=== PATIENT | male | born 1960 | race Caucasian/White ===

== ENCOUNTER 2019-03-07 00:17 | Inpatient (IN) ==
[2019-03-07 01:28] LABS: Appearance Urine Cloudy (Clear); Bacteria Urine Automated Negative (Negative); Bilirubin Urine Negative (Negative); Blood Urine Negative (Negative); Cast Urine Automated 0 /lpf (0-5); Color Urine Yellow; Glucose Urine UA Negative (Negative); Ketones Urine Trace (Negative); Leukocyte Esterase Urine Negative (Negative); Nitrite Urine Negative (Negative); Protein Urine Negative (Negative); RBC Urine Automated 0-4 /hpf (0-4); Specific Gravity Urine 1.025 (1.000-1.030); Urobilinogen Urine Negative (Negative)
[2019-03-07 01:36] LABS: Basophils # (auto) 0.08 K/uL (0-0.2); Eosinophils # (auto) 0.11 K/uL (0-0.5); Eosinophils % (auto) 1.3 %; Hematocrit (blood only) 45.5 % (42-52); Hemoglobin 15.6 g/dL (14.0-18.0); Immature Granulocytes # (auto) 0.01 K/uL (0.00-0.02); Immature Granulocytes % (auto) 0.1 %; Lymphocytes # (auto) 1.56 K/uL (1.2-3.4); Mean Corpuscular Hgb Conc 34.3 g/dL (32-36); Mean Corpuscular Volume 86.2 fL (80-100); Mean Platelet Volume 9.7 fL (7.4-10.4); Monocytes # (auto) 0.92 K/uL (0.11-0.59); Monocytes % (auto) 11.2 %; Neutrophils # (auto) 5.52 K/uL (1.4-6.5); Neutrophils % (auto) 67.4 %; Platelet Count 195 K/uL (130-400); RDW Coefficient of Variation 13.7 % (11.5-14.5); RDW Standard Deviation 42.7 fL (36.4-46.3); Red Blood Count 5.28 M/uL (4.7-6.1)
[2019-03-07 01:48] LABS: Amphetamines+Metham, Urine Neg (Neg); Barbiturates, Urine Neg (Neg); Benzodiazepine, Urine Neg (Neg); Cocaine, Urine Neg (Neg); MDMA (Ecstacy), Urine Neg (Neg); Methadone, Urine Neg (Neg); Opiate, Urine Neg (Neg); Phencyclidine, Urine Neg (Neg)
[2019-03-07 01:53] LABS: Albumin Level 3.8 gm/dl (3.4-5.0); BUN Creatinine Ratio 27.6 (10-20); Creatinine Clr Calc Pharmacy 74.9 ml/min; Est GFR (African American) 91.3; Est GFR (Non-African American) 78.8; Potassium 3.9 mmol/L (3.5-5.1)
[2019-03-07 02:03] LABS: Acetaminophen < 2 ug/ml (10-30); Albumin Globulin Ratio 1.2 (0.9-2); Bilirubin,Total 0.3 mg/dl (0.2-1); Globulin 3.3 gm/dl (2.5-4.0); Salicylate < 1.7 mg/dl (2.8-20); Total Protein 7.1 gm/dl (6.4-8.2)
--- NOTE | 2019-03-07 06:26 | Emergency Department Note ---
Entered by Ghanshyam Larson acting as a scribe for Trip Joseph MD ED Provider Note Name: Derek Peoples Age: 58 Arrives Via: Police/EMS Informant: Patient CC: Depression/Mental Health Evaluation HPI: The patient is a 58 year old male who presents to the Emergency Room via Police/EMS for a mental health evaluation. The patient states "Apparently I wrote too much in a text message to my Fiance." His Fiance called to have the patient brought into the ED this morning after he made concerning statements in a text message. The patient admits that he has been experiencing worsening depression, secondary to the progression of his Parkinson's Disease. He was diagnosed with Parkinson's in 2009. He notes that in addition to the Parkinson's his Fiance is "trying to separate from me" and he is feeling more and more depressed. The patient denies any suicidal ideation, and denies ever trying to hurt himself in the past. When asked if he ever would hurt himself he replies "Its not worth it." He does later admit to "vague thoughts." The patient denies any physical complaints including chest pain, shortness of breath, abdominal pain, or changes to bowel/bladder habits. ROS: See above HPI for pertinent positives & negatives. A total of 10 systems reviewed and were otherwise negative. Past Medical History: Parkinson's Disease Past Surgical History: N/A Family History: Non-contributory Social History: Lives with Katarina, employed. Home Medications: Parkinson's medications. Allergies No known allergies. Physical: Vitals: BP 136/85, Pulse 80, Resp 18, Temp 98.4 F, O2 sat 97 Exam: GENERAL: Patient is mildly anxious appearing and in no acute distress. He is cooperative. EYES: No scleral icterus, unremarkable pupils. ENT: Mucous membranes moist, no nasal congestion. NECK: No masses appreciated, no meningismus, trachea is midline. RESPIRATORY: No dyspnea. Clear to auscultation and equal bilaterally. No wheeze, no rhonchi. CARDIOVASCULAR: Regular rate and rhythm. No murmurs, rubs, gallops appreciated. GASTROINTESTINAL: Abdomen soft, non-tender, no peritonitis. Bowel sounds positive. No masses appreciated. BACK: No midline tenderness, no CVA tenderness EXTREMITIES: Normal motion all extremities, no cyanosis, no edema. NEUROLOGIC: There is a constant termor noted. Alert and oriented, no acute motor or sensory deficits, no focal weakness, cranial nerves grossly intact. SKIN: No rash, no jaundice, no diaphoresis. PSYCH: Patient is mildly anxious appearing. Admits depression. Denies suicidal ideation nor plan. ED Course: Prior Medical Record, Triage/Nursing Notes, Medications, Allergies reviewed by Me Vital Signs: reviewed and remarkable for wnl Labs: Reviewed and remarkable for normal psych clearance labs Reassessments/Times: 0225: The patient is stable at this time. 0320: I had a prolonged discussion with the patient at this time. He admits that he did send text messages with multiple specific ways he would kill himself after he voluntarily showed them to the Platform Operations Director. He is now open to discussing and admits that one message said "I am not kidding." He states that he is not a danger to himself and states that he was just trying to get the girlfriend to come talk to him and that he would never kill himself. He is adamant that he does not need to be admitted. I discussed the option of 302 petition vs 201 petition. He told me that "I will have to do what I have to do." 629: The patient will be signed out to Dr. Camejo at change of shift. Awaiting placement in inpatient psychiatric facility. Blood pressure: Normal. No Referral necessary Disposition: Signed out to Dr Camejo pending placement Differentials: Etiologies such as psychiatric disorder, infection, hypoglycemia, electrolyte abnormalities, cardiac sources, intracerebral event, toxicological process, neurologic disorder, as well as others were entertained. Medical Decision Makin yr old male with Parkinson's who has been having worsening depression and has made multiple specific suicidal statements via text to significant other. He is not able to recognize the danger of his situation. He is too high risk to send home despite his requests that I just trust him. He is unwilling to sign 201. For his safety I feel that I have no option but to continue with 302 that is being petitioned by the Mental Health Platform Operations Director Shy. Patient is medically clear. Signed out to Dr Camejo pending placement. Impression: Depression Suicidal Risk Trip Joseph MD The scribe's documentation has been prepared under my direction and personally reviewed by me in its entirety. I confirm that the note above accurately reflects all work, treatment, procedures, and medical decision making performed by me. Impression & Plan Depression, Suicidal risk Past Med/Surg History Medical History Parkinsons disease Social History marital status: Engaged Current Living Situation: Significant Other current occupational status: employed Feels Safe at Home: Yes Smoking Status: Never smoker Results & Data Vital Signs Vital Signs - 24 hr 03/07/19 00:26 Temperature 36.9 C Temperature Source Oral Sepsis Recent Fever Within 48 Hours No Sepsis Action Taken by Nursing No Action Required Pulse Rate 80 Respiratory Rate 18 Respiratory Depth Normal Blood Pressure 136/85 Blood Pressure Mean 102 Pulse Oximetry 97 Oxygen Delivery Method Room Air Home Medications Current Medication List: was personally reviewed by me Laboratory Data Attestation: I reviewed the patient's lab results. Result diagrams: 03/07/19 01:22 03/07/19 01:22 Lab Results 03/07/19 03/07/19 03/07/19 Range/Units 00:40 00:40 01:22 WBC 8.20 (4.8-10.8) K/uL RBC 5.28 (4.7-6.1) M/uL Hgb 15.6 (14.0-18.0) g/dL Hct 45.5 (42-52) % MCV 86.2 (80-100) fL MCH 29.5 (25-34) pg MCHC 34.3 (32-36) g/dL RDW Std Deviation 42.7 (36.4-46.3) fL RDW Coeff of Kang 13.7 (11.5-14.5) % Plt Count 195 (130-400) K/uL MPV 9.7 (7.4-10.4) fL Immature Gran % (Auto) 0.1 % Neut % (Auto) 67.4 % Lymph % (Auto) 19.0 % [place] % (Auto) 11.2 % Eos % (Auto) 1.3 % Baso % (Auto) 1.0 % Immature Gran # (Auto) 0.01 (0.00-0.02) K/uL Neut # (Auto) 5.52 (1.4-6.5) K/uL Lymph # (Auto) 1.56 (1.2-3.4) K/uL [place] # (Auto) 0.92 H (0.11-0.59) K/uL Eos # (Auto) 0.11 (0-0.5) K/uL Baso # (Auto) 0.08 (0-0.2) K/uL Sodium (136-145) mmol/L Potassium (3.5-5.1) mmol/L Chloride (98-107) mmol/L Carbon Dioxide (21-32) mmol/L Anion Gap (3-11) BUN (7-18) mg/dl Creatinine (0.6-1.4) mg/dl Est Cr Clr Drug Dosing ml/min Est GFR ( Amer) Est GFR (Non-Af Amer) BUN/Creatinine Ratio (10-20) Glucose (70-99) mg/dl Calcium (8.5-10.1) mg/dl Total Bilirubin (0.2-1) mg/dl AST (15-37) U/L ALT (12-78) U/L Alkaline Phosphatase (45-117) U/L Total Protein (6.4-8.2) gm/dl Albumin (3.4-5.0) gm/dl Globulin (2.5-4.0) gm/dl Albumin/Globulin Ratio (0.9-2) TSH (0.300-4.500) uIu/ml Urine Color Yellow Urine Appearance Cloudy H (Clear) Urine pH 5.0 (4.5-7.5) Ur Specific Neely 1.025 (1.000-1.030) Urine Protein Negative (Negative) Urine Glucose (UA) Negative (Negative) Urine Ketones Trace H (Negative) Urine Blood Negative (Negative) Urine Nitrite Negative (Negative) Urine Bilirubin Negative (Negative) Urine Urobilinogen Negative (Negative) Ur Leukocyte Esterase Negative (Negative) Urine WBC (Auto) 1-5 (0-5) /hpf Urine RBC (Auto) 0-4 (0-4) /hpf U Hyaline Cast (Auto) 0 (0-5) /lpf U Epithel Cells (Auto) 5-10 H (0-5) /lpf Urine Bacteria (Auto) Negative (Negative) Salicylates (2.8-20) mg/dl Urine Opiates Screen Neg (Neg) Ur Methadone, Qual Neg (Neg) Acetaminophen (10-30) ug/ml Urine Barbiturates Neg (Neg) Ur Phencyclidine (PCP) Neg (Neg) U Amphetamin/Meth Scrn Neg (Neg) MDMA (Ecstasy) Screen Neg (Neg) U Benzodiazepines Scrn Neg (Neg) Ur Cocaine Metabolite Neg (Neg) U Marijuana (THC) Screen Neg (Neg) Ethyl Alcohol mg/dL (0-3) mg/dl 03/07/19 03/07/19 03/07/19 Range/Units 01:22 01:22 01:22 WBC (4.8-10.8) K/uL RBC (4.7-6.1) M/uL Hgb (14.0-18.0) g/dL Hct (42-52) % MCV (80-100) fL MCH (25-34) pg MCHC (32-36) g/dL RDW Std Deviation (36.4-46.3) fL RDW Coeff of Kang (11.5-14.5) % Plt Count (130-400) K/uL MPV (7.4-10.4) fL Immature Gran % (Auto) % Neut % (Auto) % Lymph % (Auto) % [place] % (Auto) % Eos % (Auto) % Baso % (Auto) % Immature Gran # (Auto) (0.00-0.02) K/uL Neut # (Auto) (1.4-6.5) K/uL Lymph # (Auto) (1.2-3.4) K/uL [place] # (Auto) (0.11-0.59) K/uL Eos # (Auto) (0-0.5) K/uL Baso # (Auto) (0-0.2) K/uL Sodium 140 (136-145) mmol/L Potassium 3.9 (3.5-5.1) mmol/L Chloride 105 (98-107) mmol/L Carbon Dioxide 34 H (21-32) mmol/L Anion Gap 1.0 L (3-11) BUN 29 H (7-18) mg/dl Creatinine 1.04 (0.6-1.4) mg/dl Est Cr Clr Drug Dosing 74.9 ml/min Est GFR ( Amer) 91.3 Est GFR (Non-Af Amer) 78.8 BUN/Creatinine Ratio 27.6 H (10-20) Glucose 100 H (70-99) mg/dl Calcium 9.0 (8.5-10.1) mg/dl Total Bilirubin 0.3 (0.2-1) mg/dl AST 16 (15-37) U/L ALT 10 L (12-78) U/L Alkaline Phosphatase 62 (45-117) U/L Total Protein 7.1 (6.4-8.2) gm/dl Albumin 3.8 (3.4-5.0) gm/dl Globulin 3.3 (2.5-4.0) gm/dl Albumin/Globulin Ratio 1.2 (0.9-2) TSH 0.608 (0.300-4.500) uIu/ml Urine Color Urine Appearance (Clear) Urine pH (4.5-7.5) Ur Specific [place] (1.000-1.030) Urine Protein (Negative) Urine Glucose (UA) (Negative) Urine Ketones (Negative) Urine Blood (Negative) Urine Nitrite (Negative) Urine Bilirubin (Negative) Urine Urobilinogen (Negative) Ur Leukocyte Esterase (Negative) Urine WBC (Auto) (0-5) /hpf Urine RBC (Auto) (0-4) /hpf U Hyaline Cast (Auto) (0-5) /lpf U Epithel Cells (Auto) (0-5) /lpf Urine Bacteria (Auto) (Negative) Salicylates < 1.7 L (2.8-20) mg/dl Urine Opiates Screen (Neg) Ur Methadone, Qual (Neg) Acetaminophen < 2 L (10-30) ug/ml Urine Barbiturates (Neg) Ur Phencyclidine (PCP) (Neg) U Amphetamin/Meth Scrn (Neg) MDMA (Ecstasy) Screen (Neg) U Benzodiazepines Scrn (Neg) Ur Cocaine Metabolite (Neg) U Marijuana (THC) Screen (Neg) Ethyl Alcohol mg/dL < 3.0 (0-3) mg/dl Discharge Plan Visit Data Chief Complaint: Mental Health Evaluation Stated Complaint: MENTAL HEALTH EVALUATION ED Provider: Trip Joseph Discharge Problem: Depression, Suicidal risk Patient Disposition: Home - Self-Care Condition: Good Discharge Instructions Krames/Other Patient Handouts: ED Depression Activity Restrictions/Additional Instructions: We are always here to help. Return if worsening or other concerns. Forms Stand Alone Forms: My [facility], Important Visit Information Prescriptions Prescriptions: No Action carbidopa-levodopa [Sinemet CR] 50-200 mg tablet extended release 50 - 200 mg PO Q6 RF: 0 clonazepam 0.5 mg tablet 0.5 mg PO ONCE HS RF: 0 fluoxetine 20 mg capsule 20 mg PO DAILY RF: 0 gabapentin 300 mg capsule 300 mg PO DAILY RF: 0 metoprolol succinate 25 mg tablet extended release 24 hr 25 mg PO DAILY RF: 0 ondansetron HCl 4 mg tablet 4 mg PO Q6 PRN (Reason: Nausea And Vomiting) RF: 0 rasagiline 1 mg tablet 1 mg PO DAILY RF: 0 sumatriptan succinate 50 mg tablet 50 mg PO DAILY PRN (Reason: Migraine Headache) RF: 0 Referrals Referrals: PCP,NO [Primary Care Provider] - Discharge Problem: Depression Qualifiers: Depression Type: unspecified Qualified Code(s): F32.9 - Major depressive disor fei, single episode, unspecified The scribe's documentation has been prepared under my direction and personally reviewed by me in its entirety. I confirm that the note above accurately refl ects all work, treatment, procedures, and medical decision making performed by me.
[2019-03-07] MEDS ORDERED: ACETAMINOPHEN 325 MG TAB PO PRN (08:30)
[2019-03-07] MEDS ORDERED: BISMUTH SUBSALICYLATE PER ML OMNICELL CHARGE PO PRN (08:30)
[2019-03-07] MEDS ORDERED: ALUMINUM/MAGNESIUM SUSP 30 ML UDC PO PRN (08:30)
[2019-03-07] MEDS ORDERED: SODIUM CHLORIDE 0.65% NA SOLN 45 ML (OCEAN) PRN (08:30)
[2019-03-07] MEDS ORDERED: MAGNESIUM HYDROXIDE SUSP 30 ML UDC PO PRN (08:30)
--- NOTE | 2019-03-07 09:03 | Emergency Department Note ---
ED Visit Note Patient signed out to me by Dr. Joseph. Evaluated by [facility] on a involuntary commitment. Patient was accepted there and transferred there for further inpatient care. No other acute issues. ATC . : Depression Qualifiers: Depression Type: unspecified Qualified Code(s): F32.9 - Major depressive disorder, single episode, unspecified
[2019-03-07] MEDS ORDERED: SUMAtriptan succinate 50 MG TAB PO PRN (11:19)
[2019-03-07] MEDS ORDERED: ONDANSETRON 4 MG TAB PO PRN (11:19)
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
[2019-03-07] MEDS: FLUOXETINE HCL 20 MG CAP PO SCH (12:25)
[2019-03-07] MEDS: METOPROLOL SUCC 25MG EXT REL TAB PO SCH (12:26)
[2019-03-07] MEDS: CARBIDOPA/LEVODOPA 50/200MG EXT REL TAB PO SCH ×2 (12:26→17:24)
[2019-03-07] MEDS: GABAPENTIN 300 MG CAP PO SCH (21:17)
[2019-03-07] MEDS: clonazePAM 0.5 MG TAB PO SCH (21:17)
[2019-03-08] MEDS: CARBIDOPA/LEVODOPA 50/200MG EXT REL TAB PO SCH ×4 (00:56→18:03)
[2019-03-08] MEDS: METOPROLOL SUCC 25MG EXT REL TAB PO SCH (08:36)
[2019-03-08] MEDS: FLUOXETINE HCL 20 MG CAP PO SCH (08:36)
--- NOTE | 2019-03-08 09:00 | Psychiatric Progress Note ---
Date of Service March 08, 2019 Impression / Recommendations Impression 58-year-old male admitted on an involuntary commitment after sending suicidal text messages to his fiance. His primary stress is the deterioration in this relationship and anxiety due to not knowing if it will succeed. His fluoxetine has been increased, and we have recommended a family meeting, which his girlfriend is considering. He is willing to be referred for outpatient therapy. (1) Depression: 03/07 - Q 15 min checks for safety - Encourage participation in group and individual counseling - Increase Prozac to 40 mg daily - Collaborate with OP therapist - Will need psychiatric follow up - Family meeting with fiance - Assist the patient to explore healthy coping strategies - Continue to gather information toward the need for further inpatient treatment. 03/08 -Continue current medication. Refer for outpatient therapy. -Patient is willing for a meeting with his girlfriend, but she is uncertain about participating. 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 Chief Complaint "Um, stable". Review of Systems Sleep Information Total Hours of Sleep: 6.5 Sleep Comments: pt on q-15 minute checks Meal Information Percent Meal Consumed - Breakfast: 0 Percent Meal Consumed - Lunch: 100 Percent Meal Consumed - Dinner: 100 Subjective Subjective Patient was seen & assessed and interval progress reviewed with treatment team. Staff report he is attending groups, talked about his relationship strain, stating he wanted a definitive answer from his significant other regarding their relationship. He continues to deny intent to harm himself, and states he made suicidal statements to get his fiance's attention. He is willing for a referral to therapy. The social science teacher contacted his girlfriend, who stated she was distressed about the relationship, they have been struggling for months, were enmeshed and did not have a healthy relationship. Patient became more controlling when she attempted to spend time with her friends. She was not sure if she would be willing to come in for a meeting. On my assessment, the patient states that he continues to have anxiety about his relationship, stating "my mind is going," and is focused on wanting answers about the status of his relationship. He is hopeful his girlfriend will agree to come in for a meeting. He wants to work on his ability to communicate and to deal with adversity, and wants to be able to continue to care for his own health and career whether his relationship continues or not. He admits that he has contemplated suicide at times, but thinks that it is "unfair to the people left behind." He does not think he would try to end his life if his relationship ended, but states he might consider it if his health deteriorates due to his Parkinson's. He is planning to pursue DBS and is hopeful it will be an effective treatment. His druze beliefs are protective for him as well. He is tolerating the increased dose of fluoxetine well. Physical Exam Psychiatric Orientation: alert and cooperative Apperance: appropriately dressed, appropriately groomed and appeared stated age Eye Contact: good eye contact Motor Behavior: steady gait and station and + tremor (Right hand) Slightly slowed, normal rhythm and volume. Affect: + blunted affect "Stable" Thought Process: linear/logical thought process Thought Content: + preoccupation Suicidal Thoughts: denies suicidal thoughts Homicidal Thoughts: denies homicidal thoughts Hallucinations: no auditory hallucinations Cognition: recent memory grossly intact, attention grossly intact and language grossly intact Estimated Intelligence: consistent with education level Insight: + fair insight Judgement: + fair judgement Vital Signs (Past 24 Hours) Last Vital Signs Temp 36.5 C 03/08/19 06:58 Pulse 76 03/08/19 06:59 Resp 16 03/08/19 06:58 BP 138/86 03/08/19 06:59 Pulse Ox 96 03/07/19 07:12 Results & Data Current Inpatient Medications Current Inpatient Medications: Current Inpatient Medications Acetaminophen (Tylenol) 650 mg PO Q4H PRN PRN Reason: Headache or Minor Fever Stop: 04/06/19 08:29 Al Hydrox/Mg Hydrox/Simethicone (Maalox) 30 ml PO Q4H PRN PRN Reason: GI Upset Stop: 04/06/19 08:29 Bismuth Subsalicylate (Kaopectate) 15 ml PO PRN PRN PRN Reason: Loose Stool Stop: 04/06/19 08:29 Carbidopa/Levodopa (Sinemet Cr 50/200mg) 1 tab PO Q6 [facility] Stop: 04/06/19 11:59 Last Admin: 03/08/19 06:25 Dose: 1 tab Documented by: Clonazepam (Klonopin) 0.5 mg PO HS [facility] Stop: 04/06/19 21:59 Last Admin: 03/07/19 21:17 Dose: 0.5 mg Documented by: Fluoxetine HCl (Prozac) 40 mg PO DAILY [facility] Stop: 04/06/19 11:29 Last Admin: 03/08/19 08:36 Dose: 40 mg Documented by: Gabapentin (Neurontin) 300 mg PO HS [facility] Stop: 04/06/19 21:59 Last Admin: 03/07/19 21:17 Dose: 300 mg Documented by: Hydroxyzine HCl (Vistaril) 50 mg PO HSZ PRN PRN Reason: Insomnia Stop: 04/06/19 08:29 Hydroxyzine HCl (Vistaril) 25 mg PO Q4H PRN PRN Reason: Anxiety Stop: 04/06/19 08:29 Magnesium Hydroxide (Milk Of Magnesia) 30 ml PO DAILY PRN PRN Reason: Heartburn Stop: 04/06/19 08:29 Metoprolol Succinate (Toprol Xl) 25 mg PO DAILY [facility] Stop: 04/06/19 11:29 Last Admin: 03/08/19 08:36 Dose: 25 mg Documented by: Miscellaneous (Order Awaiting Action) 1 ea N/A QS [facility] Stop: 04/06/19 15:59 Last Admin: 03/08/19 08:37 Dose: Not Given Documented by: Ondansetron HCl (Zofran) 4 mg PO Q6 PRN PRN Reason: Nausea And Vomiting Stop: 04/06/19 11:18 Sodium Chloride ([place] Nasal) 1 - 2 sprays NA PRN PRN PRN Reason: Nasal Dryness/Congestion Stop: 04/06/19 08:29 Sumatriptan Succinate (Imitrex) 50 mg PO DAILY PRN PRN Reason: Migraine Headache Stop: 04/06/19 11:18 Post Discharge Appointments Primary Care Physician Name Of Family Doctor: Dr. Chavez [facility] Therapist Name of Therapist: None Phototypesetter Operator Name of Phototypesetter Operator: None CPT Code CPT Code 71229 (1) Depression Depression Type: unspecified Qualified Code(s): F32.9 - Major depressive disorder, single episode, unspecified
[2019-03-08] MEDS: GABAPENTIN 300 MG CAP PO SCH (21:10)
[2019-03-08] MEDS: clonazePAM 0.5 MG TAB PO SCH (21:10)
[2019-03-09] MEDS: CARBIDOPA/LEVODOPA 50/200MG EXT REL TAB PO SCH ×5 (00:04→21:05)
[2019-03-09] MEDS: FLUOXETINE HCL 20 MG CAP PO SCH (09:18)
[2019-03-09] MEDS: METOPROLOL SUCC 25MG EXT REL TAB PO SCH (09:18)
--- NOTE | 2019-03-09 12:46 | Psychiatric Progress Note ---
Date of Service March 09, 2019 Impression / Recommendations Impression Pt reporting some improvement in mood, but admits meeting with his fiance was difficult this morning and leaves him questioning the longevity of their relationship. Despite reported improvements, his affect continues to be blunted. Pt reports he has been benefiting from this admission and the tools he has gained in managing his reactivity and recognizing patterns of anxiety. He continues to be at risk of decompensation and harm to self if discharged prematurely. Would be beneficial to see stability of mood improvement and ensure aftercare arrangements for outpatient therapist have been made. (1) Depression: 03/07 - Q 15 min checks for safety - Encourage participation in group and individual counseling - Increase Prozac to 40 mg daily - Collaborate with OP therapist - Will need psychiatric follow up - Family meeting with braxton - Assist the patient to explore healthy coping strategies - Continue to gather information toward the need for further inpatient treatment. 03/08 -Continue current medication. Refer for outpatient therapy. -Patient is willing for a meeting with his girlfriend, but she is uncertain about participating. 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 Needs: Healthy coping strategies 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 Chief Complaint "Things are fine, today's been an ok day." Review of Systems Notes Constitutional: denied Cardiovascular: denied Respiratory: denied Gastrointestinal: denied Neurological: denied Psychiatric: denies symptoms other than stated above Total of at least 10 systems reviewed, pertinent positives as above and in HPI. Sleep Information Total Hours of Sleep: 7 Sleep Comments: awakened by staff for ordered medications at 0001 and 0600. Meal Information Percent Meal Consumed - Breakfast: 100 Percent Meal Consumed - Lunch: 100 Percent Meal Consumed - Dinner: 100 Subjective Subjective Patient was seen & assessed and interval progress reviewed with Nursing. Staff report that the patient has been participating in groups on the unit. Has been discussing his relationship with his fiance and his ongoing attempts to accept his Parkinson's diagnosis. Pt was seen today to assess progress since admission. Pt states he is doing "fine". He states, "just one of those afternoons I need a little time to myself" - as he was resting in his room at the beginning of our encounter. Pt states he has been participating in groups and has found them helpful in assisting with coping strategies. He also feels he has been better able to recognize his patterns of anxiety and other thoughts - "making me less prone to impulsive reactivity, which has been a problem for me." Pt states he had a meeting with his fiance today which was "not great." He states they discussed their needs from each other, which are somewhat misaligned at this time. He states, "it's a work in progress". He feels mood has been improving mildly and denies any side effects from fluoxetine. Pt denies SI and other specific concerns today. Physical Exam Psychiatric Orientation: alert, oriented x 3 and cooperative Apperance: appropriately dressed, appropriately groomed and appeared stated age Eye Contact: good eye contact Motor Behavior: steady gait and station and + tremor (left hand) Speech: normal rate/rhythm/volume of speech Affect: + blunted affect Mood: + depressed mood and + anxious mood "but getting better I think" Thought Process: goal directed thought process and linear/logical thought process Thought Content: reality based without delusions Suicidal Thoughts: denies suicidal thoughts Homicidal Thoughts: denies homicidal thoughts Hallucinations: no auditory hallucinations and no visual hallucinations Cognition: recent memory grossly intact, remote memory grossly intact, attention grossly intact and language grossly intact Estimated Intelligence: consistent with education level Insight: + fair insight Judgement: + fair judgement Vital Signs (Past 24 Hours) Last Vital Signs Temp 36.6 C 03/09/19 07:08 Pulse 68 03/09/19 07:09 Resp 16 03/09/19 07:08 BP 143/92 H 03/09/19 07:09 Pulse Ox 96 03/07/19 07:12 Results & Data Current Inpatient Medications Current Inpatient Medications: Current Inpatient Medications Acetaminophen (Tylenol) 650 mg PO Q4H PRN PRN Reason: Headache or Minor Fever Stop: 04/06/19 08:29 Al Hydrox/Mg Hydrox/Simethicone (Maalox) 30 ml PO Q4H PRN PRN Reason: GI Upset Stop: 04/06/19 08:29 Bismuth Subsalicylate (Kaopectate) 15 ml PO PRN PRN PRN Reason: Loose Stool Stop: 04/06/19 08:29 Carbidopa/Levodopa (Sinemet Cr 50/200mg) 1 tab PO Q6 ALAN Stop: 04/06/19 11:59 Last Admin: 03/09/19 06:17 Dose: 1 tab Documented by: Clonazepam (Klonopin) 0.5 mg PO HS [facility] Stop: 04/06/19 21:59 Last Admin: 03/08/19 21:10 Dose: 0.5 mg Documented by: Fluoxetine HCl (Prozac) 40 mg PO DAILY [facility] Stop: 04/06/19 11:29 Last Admin: 03/09/19 09:18 Dose: 40 mg Documented by: Gabapentin (Neurontin) 300 mg PO HS [facility] Stop: 04/06/19 21:59 Last Admin: 03/08/19 21:10 Dose: 300 mg Documented by: Hydroxyzine HCl (Vistaril) 50 mg PO HSZ PRN PRN Reason: Insomnia Stop: 04/06/19 08:29 Hydroxyzine HCl (Vistaril) 25 mg PO Q4H PRN PRN Reason: Anxiety Stop: 04/06/19 08:29 Magnesium Hydroxide (Milk Of Magnesia) 30 ml PO DAILY PRN PRN Reason: Heartburn Stop: 04/06/19 08:29 Metoprolol Succinate (Toprol Xl) 25 mg PO DAILY [facility] Stop: 04/06/19 11:29 Last Admin: 03/09/19 09:18 Dose: 25 mg Documented by: Miscellaneous (Order Awaiting Action) 1 ea N/A QS [facility] Stop: 04/06/19 15:59 Last Admin: 03/09/19 09:27 Dose: Not Given Documented by: Ondansetron HCl (Zofran) 4 mg PO Q6 PRN PRN Reason: Nausea And Vomiting Stop: 04/06/19 11:18 Sodium Chloride ([place] Nasal) 1 - 2 sprays NA PRN PRN PRN Reason: Nasal Dryness/Congestion Stop: 04/06/19 08:29 Sumatriptan Succinate (Imitrex) 50 mg PO DAILY PRN PRN Reason: Migraine Headache Stop: 04/06/19 11:18 Post Discharge Appointments Primary Care Physician Name Of Family Doctor: Dr. Chavez - [facility] Primary Care Provider Appointment Comment: [id number], [place] Psychiatrist Name of Psychiatrist: Summer Evangelista Psychiatrist's Date of Appointment with Psychiatrist: 03/15/19 Time of Appointment with Psychiatrist: 10:00 a.m. (please arrive 15 minutes early and bring your insurance card) Psychiatric Appointment Comment: [facility], [place] Therapist Name of Therapist: None Accounting System Expert Name of Accounting System Expert: None Contact Information Discharge Discharge Address: [address] [place] [address] CPT Code CPT Code 07467 (1) Depression Depression Type: unspecified Qualified Code(s): F32.9 - Major depressive disorder, single episode, unspecified
[2019-03-09] MEDS: clonazePAM 0.5 MG TAB PO SCH (21:07)
[2019-03-09] MEDS: GABAPENTIN 300 MG CAP PO SCH (21:07)
[2019-03-10] MEDS: CARBIDOPA/LEVODOPA 50/200MG EXT REL TAB PO SCH ×2 (06:59→12:50)
[2019-03-10] MEDS: FLUOXETINE HCL 20 MG CAP PO SCH (08:23)
[2019-03-10] MEDS: METOPROLOL SUCC 25MG EXT REL TAB PO SCH (08:23)
--- NOTE | 2019-03-10 09:45 | Discharge Summary ---
Date of Service March 10, 2019 History of Present Illness The patient is a 58-year-old male, not currently in psychiatric treatment, who reports that he has been struggling in his relationship for the last several months. The patient had been and had an affair with his current fiance. He left the marriage, he and his fiance moved in together with plans to . This caused to dividing his family with his 2 adult children saying that they would never speak with him as long as he was with her. He has not spoken with him now for 5 years. He has remained committed to this relationship with plans to get but in the last 3 to 6 months there has been increasing stress in the relationship. His fiance has repeatedly told him that he makes her feel like she is having an affair even when she is not because of his paranoia. He admits that he does this feeling that she is much younger than he is and he has Parkinson's and worries that she will leave him. He also feels that they lost themselves in the relationship and lost sight of who they were his individuals and this has led his fiance to feel as if she wants some greater independence and separation from him. In November of this year, she started seeing a emr trainer in order to lose weight and shortly thereafter asked for more independent time to hang out with her friends. He was initially hesitant to give his support to this once again worrying that she was going to eventually leave him but he did give his permission. Since that time she has been spending more and more time with friends in about 4 to 6 weeks ago took marriage off of the table. She told him that he is not the same person he was when she met him and not sure that she wants to this person. Since then they have been sleeping in separate bedrooms with his fiance coming home from work and going directly to her room and shutting the door. He admits to a great deal of anxiety about this saying that given the trajectory of his Parkinson's disease, he is not sure what the future holds and does not want to waste a lot of time in ambiguity. Last night, the patient says his fiance came home and engaged in some discussion until she went to the grocery store between 9 and 10 PM. He began to feel suspicious of her saying that when they were having an affair she would sometimes meet him later tonight but at the same time says that it is not uncommon for her to go to the grocery store at that hour. When she got back, their discussion ensued, it apparently got more acrimonious and she decided to leave and go spend the night at her grandfather's house. After she had left he began a texting campaign making suicidal threats to either use c arbon monoxide from his car in the garage or to overdose on all of his medications. She then contacted EMS and he was brought to the emergency department. He declined a voluntary admission saying he felt he would be all right and so a 302 was pursued and completed. At the time I meet with the patient he is alert and cooperative. He sits calmly in the chair with noticeable left hand tremor. He tells me that his mood has been extremely anxious related to not knowing how their relationship proceed but denies that he has been acutely suicidal. He does admit to making suicidal texts as a means to "get her attention". He feels need for resolution and does not tolerate the state of limbo very well. He reports that his sleep has been terrible with both difficulty falling asleep as well as staying asleep, getting only 3 to 4 hours per night. He reports laying awake worrying. He denies panic attacks. He denies ever having had any auditory or visual hallucinations. He denies any self-injurious acts. He denies any evidence of bipolar disorder. He indicates that he has been in therapy with Corona Womack for the last 3 or 4 years but is never seen a psychiatrist. His current dose of Prozac 20 mg has been prescribed by his PCP. Physical Exam Psychiatric Orientation: alert, oriented x 3 and cooperative Apperance: appropriately dressed, appropriately groomed and appeared stated age Eye Contact: good eye contact Motor Behavior: steady gait and station and + tremor (most obvious in right hand) Speech: normal rate/rhythm/volume of speech affect is subdued, but much less depressed/blunted Mood: + anxious mood (mildly, regarding discharge and future plans); no depressed mood "feeling a lot better" "7/10 today, that's pretty good, I know what a ten would be, but a 7 is still pretty good." Thought Process: goal directed thought process, linear/logical thought process and clear/coherent thought process Thought Content: reality based without delusions Suicidal Thoughts: denies suicidal thoughts Homicidal Thoughts: denies homicidal thoughts Hallucinations: no auditory hallucinations and no visual hallucinations Cognition: recent memory grossly intact, remote memory grossly intact, attention grossly intact and language grossly intact Estimated Intelligence: consistent with education level Insight: good insight Judgement: good judgement Vital Signs (Past 24 Hours) Last Vital Signs Temp 36.5 C 03/10/19 06:00 Pulse 75 03/10/19 06:55 Resp 14 03/10/19 06:00 BP 149/98 H 03/10/19 06:55 Pulse Ox 96 03/07/19 07:12 Principal Diagnosis Major depressive disorder, single episode Psychiatric Data 58-year-old male admitted involuntarily for inpatient psychiatric treatment after sending text messages with suicidal statements to his fiance, suggesting the use of carbon monoxide to poison himself . Significant outpatient stressors include a recent diagnosis of Parkinson's Disease and deterioration of his relationship with his fiance. Pt had reportedly been suspicious that his fiance had been cheating on him and sent suicidal text messages after an argument between them. Pt contacted EMS who brought patient to the ED. Pt refused voluntary admission, so a 302 was pursued and he was involuntarily admitted to the unit. Pt had been on 20mg of fluoxetine for several years, so decision was made to titrate the dose to better target depressive symptoms. Pt tolerated the dose increase to 40mg daily and reported gradual improvement in mood, with resolution of suicidal ideation. Pt participated regularly in group and recreational programming and reported to several staff that he felt his time here was greatly benefiting him. Pt was willing to involve his fiance in a family meeting, in which they were able to discuss the concerns in their relationship and devise a plan to allow for some personal growth. Pt completed a safety plan which was personally reviewed by this provider. At time of discharge, patient was denying SI or other safety concerns. He was able to verbalize red flags in regard to behavior suggestive of worsening mood, and reported more hopefulness about coping with his mental health concerns. Though he may experience difficulties with regard to the progression of his Parkinson's disease over time, he does not appear to be at acute risk of harm to himself and therefore seems appropriate for discharge to home - with support of outpatient psychiatry and therapy. Pt is agreeable with this plan, verbalizing a readiness for discharge. Day of Discharge Assessment Pt's case was reviewed and discussed during treatment team. Staff reports the patient has been engaged in treatment throughout last evening and the duration of his stay. He participated in a family meeting with his fiance yesterday. Though difficult, the pair were able to explore their individual and combined needs and come to an understanding that some separation and personal growth would be beneficial. Pt was seen today to assess readiness for discharge. Pt states he is "doing pretty good" and speaks positively about his experience here. Pt states he is appreciate of the opportunity to be exposed to various coping strategies and "master a few skills that will be most helpful moving forward." Pt recognizes that this is a process, but feels better equipped to manage future stressors. Pt denies SI today stating "those got all taken care of." Pt denies any safety concerns and feels he would be able to adequate care for his physical and mental health in an outpatient setting. Pt feels ready for discharge today. Based on review of patient's case and current presentation, he seems appropriate for discharge to the outpatient setting with ongoing therapy and medication management. ROS: Constitutional: denied Cardiovascular: denied Respiratory: denied Gastrointestinal: denied Neurological: denied Psychiatric: denies symptoms other than stated above Total of at least 10 systems reviewed, pertinent positives as above and in HPI. Transition of Care Transition Of Care Record: was reviewed with the patient Advance Directives Advance Directives Information Provided: Yes Advance Directives: No Mental Health Advance Directive: No Advance Directives on File: No Living Will: No Power of Cook Helper Fruit: No Advance Directives Reason:: Declines as Mental Health Visit. 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 Relationships: No Supportive Family: No Tobacco Cessation at Discharge Tobacco Cessation Medication Prescribed at Discharge: Not Applicable/Non-Smoker Total Time Total Time Spent: Greater Than 30 Minutes Total Time Includes: Examination of the patient, Discharge Planning, Medication Reconciliation and Communication with other providers Discharge Data Lab Results 03/07/19 03/07/19 03/07/19 00:40 00:40 01:22 WBC 8.20 RBC 5.28 Hgb 15.6 Hct 45.5 MCV 86.2 MCH 29.5 MCHC 34.3 RDW Std Deviation 42.7 RDW Coeff of Kang 13.7 Plt Count 195 MPV 9.7 Immature Gran % (Auto) 0.1 Neut % (Auto) 67.4 Lymph % (Auto) 19.0 [place] % (Auto) 11.2 Eos % (Auto) 1.3 Baso % (Auto) 1.0 Immature Gran # (Auto) 0.01 Neut # (Auto) 5.52 Lymph # (Auto) 1.56 [place] # (Auto) 0.92 H Eos # (Auto) 0.11 Baso # (Auto) 0.08 Sodium Potassium Chloride Carbon Dioxide Anion Gap BUN Creatinine Est Cr Clr Drug Dosing Est GFR ( Amer) Est GFR (Non-Af Amer) BUN/Creatinine Ratio Glucose Calcium Total Bilirubin AST ALT Alkaline Phosphatase Total Protein Albumin Globulin Albumin/Globulin Ratio TSH Urine Color Yellow Urine Appearance Cloudy H Urine pH 5.0 Ur Specific Una 1.025 Urine Protein Negative Urine Glucose (UA) Negative Urine Ketones Trace H Urine Blood Negative Urine Nitrite Negative Urine Bilirubin Negative Urine Urobilinogen Negative Ur Leukocyte Esterase Negative Urine WBC (Auto) 1-5 Urine RBC (Auto) 0-4 U Hyaline Cast (Auto) 0 U Epithel Cells (Auto) 5-10 H Urine Bacteria (Auto) Negative Salicylates Urine Opiates Screen Neg Ur Methadone, Qual Neg Acetaminophen Urine Barbiturates Neg Ur Phencyclidine (PCP) Neg U Amphetamin/Meth Scrn Neg MDMA (Ecstasy) Screen Neg U Benzodiazepines Scrn Neg Ur Cocaine Metabolite Neg U Marijuana (THC) Screen Neg Ethyl Alcohol mg/dL 03/07/19 03/07/19 03/07/19 01:22 01:22 01:22 WBC RBC Hgb Hct MCV MCH MCHC RDW Std Deviation RDW Coeff of Kang Plt Count MPV Immature Gran % (Auto) Neut % (Auto) Lymph % (Auto) [place] % (Auto) Eos % (Auto) Baso % (Auto) Immature Gran # (Auto) Neut # (Auto) Lymph # (Auto) [place] # (Auto) Eos # (Auto) Baso # (Auto) Sodium 140 Potassium 3.9 Chloride 105 Carbon Dioxide 34 H Anion Gap 1.0 L BUN 29 H Creatinine 1.04 Est Cr Clr Drug Dosing 74.9 Est GFR ( Amer) 91.3 Est GFR (Non-Af Amer) 78.8 BUN/Creatinine Ratio 27.6 H Glucose 100 H Calcium 9.0 Total Bilirubin 0.3 AST 16 ALT 10 L Alkaline Phosphatase 62 Total Protein 7.1 Albumin 3.8 Globulin 3.3 Albumin/Globulin Ratio 1.2 TSH 0.608 Urine Color Urine Appearance Urine pH Ur Specific Una Urine Protein Urine Glucose (UA) Urine Ketones Urine Blood Urine Nitrite Urine Bilirubin Urine Urobilinogen Ur Leukocyte Esterase Urine WBC (Auto) Urine RBC (Auto) U Hyaline Cast (Auto) U Epithel Cells (Auto) Urine Bacteria (Auto) Salicylates < 1.7 L Urine Opiates Screen Ur Methadone, Qual Acetaminophen < 2 L Urine Barbiturates Ur Phencyclidine (PCP) U Amphetamin/Meth Scrn MDMA (Ecstasy) Screen U Benzodiazepines Scrn Ur Cocaine Metabolite U Marijuana (THC) Screen Ethyl Alcohol mg/dL < 3.0 Hospital Course (1) Depression: 03/07 - Q 15 min checks for safety - Encourage participation in group and individual counseling - Increase Prozac to 40 mg daily - Collaborate with OP therapist - Will need psychiatric follow up - Family meeting with braxton - Assist the patient to explore healthy coping strategies - Continue to gather information toward the need for further inpatient treatment. 03/08 -Continue current medication. Refer for outpatient therapy. -Patient is willing for a meeting with his girlfriend, but she is uncertain about participating. 03/09 - Continue current medication regimen - Referral for outpatient therapy sent to [facility] - Meeting today with braxton, ongoing relationship stressors reported (2) Hypertension: 03/07 - Continue home dose of metoprolol - Monitor BP (3) Parkinsons disease: 03/07 - Continue home meds Post Discharge Appointments Primary Care Physician Name Of Family Doctor: Dr. Chavez - [facility] Primary Care Provider Appointment Comment: [id number], [place] Psychiatrist Name of Psychiatrist: Summer Evangelista Psychiatrist's Date of Appointment with Psychiatrist: 03/15/19 Time of Appointment with Psychiatrist: 10:00 a.m. (please arrive 15 minutes early and bring your insurance card) Psychiatric Appointment Comment: [id number] [facility] Therapist Name of Therapist: [employer] Therapist's Diversified Crops Supervisor Name of Diversified Crops Supervisor: None Smoking Cessation Counseling Tobacco Cessation Medication Prescribed at Discharge: Not Applicable/Non-Smoker Contact Information Discharge Discharge Address: [address] [place] [address], [place] [address] Discharge Plan Discharge Items Patient Disposition: Home - Self-Care Reason For Visit: DEPRESSIVE DISORDER NOS Discharge Diagnosis: Major depressive disorder Condition: Good Discharge Goals: Decrease discomfort, Improve function, Increase independence, Learn about illness and Therapeutic intervention Activity: Resume your previous activity Non-emergency contact: Primary Care Provider and Therapist Call non-emergency contact if: you have any medication questions and your s ymptoms worsen Follow-up/Referrals: PCP,NO [Primary Care Provider] - Diet: Regular Addtl Provider Instructions: SPECIAL CARE INSTRUCTIONS: 1. Follow through with your scheduled aftercare appointments. If unable to keep an appointment, please call to reschedule. 2. Take your medication only as prescribed. Medication should not be changed or stopped without the approval of your doctor. In the event of worsening symptoms or concerns about side effects, contact your doctor immediately. 3. Utilize new healthy coping skills, anger management skills, and stress management skills learned during your hospitalization. Journal feelings and process them with a support person. Identify stressors or situations that may result in relapse, deterioration or inappropriate behaviors and develop a plan to deal with those issues. 4. If your coping skills are ineffective and you are in crisis, contact your outpatient providers for direction. If unable to reach your providers, please call the CAN HELP LINE AT or go to the closest Emergency Room. 5. Avoid alcohol and un-prescribed drugs. 6. You have been provided with the Mental Health Advance Directives Pamphlet for your review. AFTERCARE APPOINTMENTS: * Please call your insurance company prior to your scheduled appointment to confirm your aftercare providers are covered. Take your insurance information to your appointments. WHO TO CALL AND WHEN: Medical Emergencies: For questions or emergencies related to your hospital stay, please contact the Inpatient Behavioral Health Unit at [phone]. A licensed plumber is on-call 31/05 for the Behavioral Health Unit for emergencies At any time you feel your situation is an emergency, you may also call 911 immediately. Your Doctors Instructions noted above were prepared by provider Iraida Yee PA-C. Prescriptions: New fluoxetine 40 mg capsule 40 mg PO QAM 30 Days Qty: 30 RF: 0 Continued carbidopa-levodopa [Sinemet CR] 50-200 mg tablet extended release 50 - 200 mg PO Q6 RF: 0 clonazepam 0.5 mg tablet 0.5 mg PO ONCE HS RF: 0 gabapentin 300 mg capsule 300 mg PO DAILY RF: 0 metoprolol succinate 25 mg tablet extended release 24 hr 25 mg PO DAILY RF: 0 ondansetron HCl 4 mg tablet 4 mg PO Q6 PRN (Reason: Nausea And Vomiting) RF: 0 rasagiline 1 mg tablet 1 mg PO DAILY RF: 0 sumatriptan succinate 50 mg tablet 50 mg PO DAILY PRN (Reason: Migraine Headache) RF: 0 Discontinued fluoxetine 20 mg capsule 20 mg PO DAILY RF: 0 Stand-Alone Forms: [facility] Discharge Orders: Discharge Order (Routine); Ordered 03/10/19 Ordered By: Iraida Yee Admission Data Admit Date/Time: 03/07/19 08:30 Attending Provider: Elif Hernández Admit Provider: Elif Hernández Primary Care Provider: PCP,NO Service: Psychiatry Other Interventions: Discharge Summary Assessment (RN) Last Done: 03/10/19 11:14 PSY Interdisciplinary Discharge Planning Last Done: 03/10/19 12:52 Pending Studies at Discharge: No DC Date/Time DO NOT enter until pt leaves facility: 03/10/19 12:55
== END 2019-03-10 12:55 | disposition home or self-care (01) | DRG 881 ==
LOC: ED 00:17 → 3S 08:30